=== PATIENT | female | born 1960 | race Caucasian/White ===

== ENCOUNTER 2016-12-19 12:42 | Emergency (ER) | payer OTHER ==
[~2016-12-19] VITALS: Ht 167.6 cm; Wt 114.0 kg
[~2016-12-19 12:42] MED LIST: BACL10TA PO; CYMB60CA PO; DILT31TA PO; LISI20 PO; METO25 PO; PERC5TAB12 PO; PRAV40TA PO; ZOFR4TAB3 SL
[2016-12-19 12:44] VITALS: BP 156/78; PULSE 70; RESP 12; TEMP 97.6; O2SAT 96
--- NOTE | 2016-12-19 14:23 | PD ---
HPI Chief Complaint: Fall Time Seen by Provider: 14:21 Travel History International Travel<30 days: No Contact w/Intl Traveler<30days: No Traveled to known affect area: No History of Present Illness HPI 56-year-old female presents to the emergency Department with complaint of right arm pain after falling at approximately 6 AM this morning. Patient has history of CVA and right-sided weakness. She was up using the bathroom without her leg brace and her right leg gave out and she fell landing on her right arm. She denies hitting her head or loss of consciousness. Reports right hand pain, wrist pain, upper arm pain. Her right arm is normally flaccid secondary to the CVA. Denies paresthesias or loss of sensation to the affected extremity. Denies fever, chills. Denies nausea, vomiting. Denies neck pain or back pain. Denies chest pain, shortness of breath, abdominal pain. Banquet Lead/family member at bedside denies patient has had any change in mentation, confusion, disorientation. Denies anticoagulants. History of asthma, diabetes, hypertension, CVA. Allergies to aspirin, morphine, vancomycin. No other modifying factors or associated signs and symptoms. PFSH Past Medical History Hx Anticoagulant Therapy: No Asthma: Yes Atrial Fibrillation: Yes Anxiety: Yes Depression: Yes Cancer: No Cardiovascular Problems: Yes High Cholesterol: Yes Cerebrovascular Accident: Yes Coronary Artery Disease: Yes Diabetes: Yes Diminished Hearing: No Endocrine: No Genitourinary: No Hypertension: Yes Immune Disorder: No Musculoskeletal: Yes (BACK, DISK HERNIATION; TORN MINISCUS LT KNEE) Neurologic: Yes Psychiatric: Yes Reproductive: No Respiratory: Yes (Asthma ) Migraines: Yes Ulcer: Yes ?: Not Menopausal: Yes Past Surgical History Body Medical Devices: hardware left foot Cardiac Surgery: Yes (cardiac ablation) Gynecologic Surgery: Yes (hysterectomy) Hysterectomy: Yes Neurologic Surgery: Yes Oral Surgery: Yes (tonsillectomy sinusotomy) Pacemaker: No Other Surgery: Yes (SINUS SURGERY, BACK SURGERY) Social History Alcohol Use: No Tobacco Use: No Substance Use: No Allergies-Medications (Allergen,Severity, Reaction): Coded Allergies: Vancomycin (Verified Allergy, Severe, Rash, hypertension, tachycardia, ) Aspirin (Verified Adverse Reaction, Severe, 12/19/16) Patient states she can't take because she used to have ulcers, also H/O hemmorhagic CVA. Morphine (Verified Adverse Reaction, Severe, "Becomes violent", 12/19/16) Reported Meds & Prescriptions Reported Meds & Active Scripts Active Lortab (Hydrocodone-Acetaminophen) 5-325 Mg Tab 1 Tab PO Q6H PRN Reported Pravachol (Pravastatin) 40 Mg Tab 40 Mg PO DAILY Metoprolol Tartrate 25 Mg Tab 25 Mg PO DAILY Lisinopril 20 Mg Tab 20 Mg PO DAILY Diltiazem (Diltiazem HCl) 30 Mg Tab 30 Mg PO QID Cymbalta DR (Duloxetine HCl) 60 Mg Capdr 60 Mg PO DAILY Baclofen 10 Mg Tab 10 Mg PO TID Review of Systems Except as stated in HPI: all other systems reviewed are Neg Physical Exam Narrative GENERAL: Well-nourished, well-developed elderly, female patient, in no acute distress SKIN: Warm and dry. HEAD: Atraumatic. Normocephalic. No facial or scalp abrasions or lacerations noted. EYES: Pupils equal and round at 4 mm with brisk reaction. No scleral icterus. No injection or drainage. No raccoon eyes. ENT: Mucosa pink and moist. No erythema or exudates. No uvular edema. No uvular , palatal, or tonsillar deviation. Airway patent. Nares without nasal blood, purulent drainage or septal hematoma. No rhinorrhea. EARS: Bilateral pinnae and external canals appear within normal limits. Bilateral tympanic membranes without erythema, dullness, hemotympanum or perforation. No otorrhea. No orantes signs. NECK: Trachea midline. Moving freely. Active rotation of the neck greater than 45 left and right. No midline point tenderness on palpation of the cervical spine. No obvious deformities. CHEST: No retractions or use of accessory muscles. CARDIOVASCULAR: Regular rate and rhythm. No murmur appreciated. RESPIRATORY: No accessory muscle use. Clear to auscultation. Breath sounds equal bilaterally. GASTROINTESTINAL: Abdomen soft, non-tender, nondistended. Hepatic and splenic margins not palpable. Bowel sounds are active 4 quadrants. MUSCULOSKELETAL: Right arm flaccid secondary to CVA; right arm with ecchymosis noted to bicep area, wrist and hand area; with tenderness on palpation to the bicep area, wrist, and hand; hand is minimally edematous; sensory intact; 2+ radial pulses; less than 3 second cap refill; no obvious deformities. No obvious deformities. No clubbing. No cyanosis. No edema. BACK: No midline Point tenderness on palpation of the lumbar or thoracic spine. No obvious deformities. Patient sitting up in bed at 90. NEUROLOGICAL: Awake and alert. Oriented 3. No obvious cranial nerve deficits. Motor grossly within normal limits. Normal speech. Moves all extremities. 5/5 strength to all extremities. Sensory intact. PSYCHIATRIC: Appropriate mood and affect; insight and judgment normal. Data Data Last Documented VS Vital Signs Date Time Temp Pulse Resp B/P Pulse Ox O2 Delivery O2 Flow Rate FiO2 12/19/16 12:44 97.6 70 12 156/[address] Brain W/O Iv Contrast(Rout) (12/19/16 ) Forearm (2vws) (12/19/16 14:11) Hand, Complete ([id number]) (12/19/16 14:11) Humerus (Min 2vws) (12/19/16 14:11) Ice/Cold Pack (12/19/16 14:11) Splint Or Brace Apply/Monitor (12/19/16 16:02) Sling Cradle Arm (12/19/16 ) MDM Medical Decision Making Medical Screen Exam Complete: Yes Emergency Medical Condition: Yes Medical Record Reviewed: Yes Differential Diagnosis Fall, fracture, contusion, sprain Narrative Course 56-year-old female with right arm injury after a mechanical fall earlier this morning. History of CVA and right-sided weakness. Denies hitting her head or loss of consciousness. Right upper extremity is flaccid and that is normal for the patient. Head CT ordered. Right humerus, right forearm, right hand, right wrist x-ray ordered. 1536: Right hand x-ray concludes cortical step-offs and acute fractures are appreciated at the base of the head of the first and second metacarpals and there is no evidence of dislocations. Right humerus, right forearm, right wrist x-rays are unremarkable. CT head concludes Stable noncontrast head CT. No acute finding is identified. There is stable encephalomalacia in the left frontal lobe. Call placed to hand. 1600: I spoke with Dr. Connolly and he recommended thumb spica splint and this patient to follow up in his office. Splint ordered. Arm sling ordered for support. Lortab prescribed for home. Instructed patient to follow-up with Dr. Connolly in his office and verbalized understanding and agreement. Patient is medically cleared and stable for discharge. Discussed reasons to return to the emergency department. Instructed patient to follow up with primary care provider. Patient agrees with treatment plan. The patients vital signs are stable and the patient is stable for outpatient follow-up and treatment. Patient discharged home, stable and in no acute distress. Diagnosis Primary Impression: Fall Qualified Code: W19.XXXA - Fall, initial encounter Additional Impression: Right hand fracture Qualified Code: S62.91XA - Right hand fracture, closed, initial encounter Referrals: Aashish Connolly III, MD Primary Care Physician Patient Instructions: Fall Prevention (ED), General Instructions, Hand Fracture (ED) Additional Instructions: Tylenol or ibuprofen as needed and as directed to reduce pain and inflammation Rest, ice, and compress extremity to decrease pain and inflammation Arm sling for support Point for support; do not remove splint until he follow-up with the hand surgeon , Dr. Connolly Avoid aggravating activity; increase activity as tolerated Follow-up with primary care provider Follow-up with hand surgeon, Dr. Connolly. His information is in your discharge instructions. Return to the emergency department immediately with worsening symptoms Med/Other Pt SpecificInfo: Prescription(s) given Scripts Hydrocodone-Acetaminophen (Lortab)5-325 Mg Tab1 Tab PO Q6H PRN (PAIN) #15 TAB Ref 0 Prov:Yvette Alford DO 12/19/16 Disposition: 01 DISCHARGE HOME Condition: Stable Alisia Obrien Dec 19, 2016 14:23
[2016-12-19] MEDS ORDERED: DILT30TA PO (14:32)
[2016-12-19] MEDS ORDERED: PRAV40TA PO (14:32)
[2016-12-19] MEDS ORDERED: BACL10TA PO (14:32)
[2016-12-19] MEDS ORDERED: LISI-515 PO (14:32)
[2016-12-19] MEDS ORDERED: METO25TA3 PO (14:32)
[2016-12-19] MEDS ORDERED: CYMB60CA PO (14:32)
--- NOTE | 2016-12-19 15:19 | RADRPT ---
EXAM DATE/TIME: 12/19/2016 14:48 [facility] COMPARISON: No previous studies available for comparison. INDICATIONS : Fell today. MEDICAL HISTORY : Stroke. SURGICAL HISTORY : None. ENCOUNTER: Initial ACUITY: 1 day PAIN SCORE: 8/10 LOCATION: Right hand FINDINGS: The bony structures are osteopenic. Cortical step-offs and acute fractures are appreciated the base o f the head of the first and second metacarpals. There is no evidence of dislocations. CONCLUSION: Fractured distal base of the head first and second metacarpals Carson Siddiqui MD on December 19, 2016 at 15:16 Board Certified Radiologist. This report was verified electronically.
--- NOTE | 2016-12-19 15:23 | RADRPT ---
EXAM DATE/TIME: 12/19/2016 14:51 [facility] COMPARISON: No previous studies available for comparison. INDICATIONS : Fell today MEDICAL HISTORY : Stroke. SURGICAL HISTORY : None. ENCOUNTER: Initial ACUITY: 1 day PAIN SCORE: 8/10 LOCATION: Right forearm FINDINGS: Two view examination of the right forearm demonstrates no evidence of fracture or dislocation. Bony mineralization is osteopenic. The soft tissue structures are intact. CONCLUSION: No acute bony injury Carson Siddiqui MD on December 19, 2016 at 15:20 Board Certified Radiologist. This report was verified electronically.
--- NOTE | 2016-12-19 15:29 | RADRPT ---
EXAM DATE/TIME: 12/19/2016 14:45 [facility] COMPARISON: HUMERUS RIGHT (MIN 2VWS), July 02, 2016, 22:02. INDICATIONS : Fell today.. MEDICAL HISTORY : Stroke. SURGICAL HISTORY : None. ENCOUNTER: Initial ACUITY: 1 day PAIN SCORE: 8/10 LOCATION: Right humerus FINDINGS: 2 views right humerus demonstrate no fracture or dislocation. Mineralization is within normal limits. No soft tissue abnormality or radiopaque foreign body is identified. CONCLUSION: No acute abnormality is identified. Ed Collins MD on December 19, 2016 at 15:27 Board Certified Radiologist. This report was verified electronically.
--- NOTE | 2016-12-19 15:38 | RADRPT ---
EXAM DATE/TIME: 12/19/2016 14:50 [facility] COMPARISON: CT BRAIN W/O CONTRAST, July 02, 2016, 21:51. INDICATIONS : Leg weakness causing falls. RADIATION DOSE: 41.10 CTDIvol (mGy) MEDICAL HISTORY : Cardiovascular disease. Cerebrovascular disease. Diabetes SURGICAL HISTORY : Hysterectomy. Craniotomy. ENCOUNTER: Initial ACUITY: 1 day PAIN SCALE: 5/10 LOCATION: cranial TECHNIQUE: Multiple contiguous axial images were obtained of the head. Using automated exposure control and adj ustment of the mA and/or kV according to patient size, radiation dose was kept as low as reasonably a chievable to obtain optimal diagnostic quality images. FINDINGS: CEREBRUM: There is stable low attenuation encephalomalacia primarily in the left frontal lobe. Ventricles are n ormal in size. No evidence of midline shift, mass lesion, hemorrhage or acute infarction. No extra-a xial fluid collections are seen. POSTERIOR FOSSA: The cerebellum and brainstem demonstrate no abnormality. The 4th ventricle is midline. The cerebell opontine angle is unremarkable. EXTRACRANIAL: Visualized sinuses are clear. SKULL: There has been prior left frontal craniotomy. CONCLUSION: Stable noncontrast head CT. No acute finding is identified. There is stable encephalomalacia in the l eft frontal lobe. Ed Collins MD on December 19, 2016 at 15:34 Board Certified Radiologist. This report was verified electronically.
[2016-12-19] MEDS ORDERED: HYDR-3533 PO (16:05)
[2016-12-19] MEDS ORDERED: ACETAMINOPHEN/HYDROcodone 325 MG/5 MG TAB PO ONE (17:00)
== END 2016-12-19 18:16 | disposition home or self-care (01) ==
LOC: NEPB 12:42
DX: S62.231A Other displaced fracture of base of first metacarpal bone, right hand, initial encounter for closed fracture (principal); S62.310A Displaced fracture of base of second metacarpal bone, right hand, initial encounter for closed fracture; I48.91 Unspecified atrial fibrillation; E78.00 Pure hypercholesterolemia, unspecified; I25.10 Atherosclerotic heart disease of native coronary artery without angina pectoris; I10 Essential (primary) hypertension; I25.2 Old myocardial infarction; W19.XXXA Unspecified fall, initial encounter; Y92.002 Bathroom of unspecified non-institutional (private) residence as the place of occurrence of the external cause
CPT/HCPCS: 70450; 73060; 73090; 73130; 99284; L3808

== ENCOUNTER → 2018-02-27 | Outpatient (CLI) | payer OTHER ==
[~2018-02-27] MED LIST changes: +DILT30TA PO; -DILT31TA PO; +HYDR-3533 PO; +LISI-515 PO; -LISI20 PO; -METO25 PO; +METO25TA3 PO; -PERC5TAB12 PO; -ZOFR4TAB3 SL
[2018-02-27 13:32] LABS: PROTHROMBIN TIME - PATIENT 10.4 SEC (9.8-11.6)
[2018-02-27 14:17] LABS: AUTOMATED NEUTROPHIL # 3.3 TH/MM3 (1.8-7.7); BASOPHIL % 0.2 % (0.0-2.0); EOSINOPHIL # 0.3 TH/MM3 (0-0.4); EOSINOPHIL % 3.8 % (0.0-4.0); HEMATOCRIT 40.4 % (35.0-46.0); HEMOGLOBIN 13.3 GM/DL (11.6-15.3); LYMPH % 42.9 % (9.0-44.0); MEAN CELL VOLUME 88.3 FL (80.0-100.0); MEAN CORPUSCULAR HEMOGLOBIN 29.2 PG (27.0-34.0); MEAN PLATELET VOLUME 10.2 FL (7.0-11.0); MONO % 5.7 % (0.0-8.0); MONOCYTE # 0.4 TH/MM3 (0-0.9); NEUT % 47.4 % (16.0-70.0); PLATELET COUNT 227 TH/MM3 (150-450); RED BLOOD COUNT 4.58 MIL/MM3 (4.00-5.30); WHITE BLOOD COUNT 6.9 TH/MM3 (4.0-11.0)
[2018-02-27 14:30] LABS: ALBUMIN 3.9 GM/DL (3.4-5.0); BICARBONATE 28.6 MEQ/L (21.0-32.0); BLOOD UREA NITROGEN 14 MG/DL (7-18); CALCIUM 8.9 MG/DL (8.5-10.1); CHLORIDE 106 MEQ/L (98-107); GLUCOSE,RANDOM 108 MG/DL (74-106); SODIUM (NA) 141 MEQ/L (136-145)
[2018-02-27 14:31] LABS: ALT (GPT) 77 U/L (10-53); AST (GOT) 71 U/L (15-37); CREATININE 0.83 MG/DL (0.50-1.00); GLOMERULAR FILTRATION RATE 70 ML/MIN (>89)
[2018-02-27 14:39] LABS: ALKALINE PHOSPHATASE 94 U/L (45-117); CHOLESTEROL 152 MG/DL (120-200); CHOLESTEROL/ HDL RATIO 3.01 RATIO; HDL CHOLESTEROL 50.4 MG/DL (40.0-60.0); LDL CHOLESTEROL 73 MG/DL (0-99); TOTAL BILIRUBIN ADULT 0.5 MG/DL (0.2-1.0); TOTAL PROTEIN 7.6 GM/DL (6.4-8.2); TRIGLYCERIDES 141 MG/DL (42-150)
== END ==
LOC: PLAB 11:04
PROVIDERS: ATTEND Podiatrist Foot & Ankle Surgery
DX: M24.574 Contracture, right foot (principal); M20.41 Other hammer toe(s) (acquired), right foot; M20.11 Hallux valgus (acquired), right foot; E11.9 Type 2 diabetes mellitus without complications; E78.5 Hyperlipidemia, unspecified; I11.9 Hypertensive heart disease without heart failure; R53.81 Other malaise; Z11.59 Encounter for screening for other viral diseases
CPT/HCPCS: 36415; 80053; 80061; 83036; 85025; 85610; 85730; 86703; 86803

== ENCOUNTER → 2018-03-07 | Day surgery (SDC) | payer OTHER ==
[~2018-03-07] MED LIST changes: +APREPITANT 40 MG CAP ONE; +BUPIVACAINE HCL PF 0.5% 30 ML VIAL ONE; +BUPIVACAINE HCL PF 0.75% 30 ML VIAL ONE; +LACTATED RINGER'S 1000 ML INJ 1,000 ML ONE; +MIDAZOLAM HCL 2 MG/2 ML VIAL ONE; +ONDANSETRON HCL 4 MG/2 ML VIAL IV PUSH ONE; +PROPOFOL 100 MG/10 ML INJ IV ONE; +ceFAZolin 2 GM PREMIX 100 ML IV ONE; +oxyCODONE/ACETAMINOPHEN 5 MG/325 MG TAB ONE
--- NOTE | 2018-03-13 09:54 | TN ---
cc: DiazEulaliodelicia CARPENTER DATE OF SURGERY: 03/07/2018 INDICATIONS: This patient presented to my clinic with inability to fit appropriately into her brace. She suffered a stroke many years ago and has right-sided weakness and inability to use some of the muscles in her right lower extremity. She also had a bunion deformity that was rubbing in her shoes as well as the inability to fit well into her brace. She was found to have gastrocnemius equinus as well as a prominent medial eminence to the bunion area that would stay erythematous secondary to pressure in her shoes. She came to me requesting correction of deformity of the bunions on her toes that were in a reducible flexion contracture, as well as her inability to fit well into that brace at a right angle. I discussed with her that she would need either a gastrocnemius recession with percutaneous tendo-Achilles lengthening, bunionectomy of the right foot and possible flexor tenotomies of her second, third, fourth and fifth hammertoes. She agreed to move forward with surgical correction of these deformities and consent was signed. The risks, benefits and potential complications were described in detail to the patient. PROCEDURE NOTE: She was seen in preop holding by myself, nursing staff and anesthesia where the correct patient, side, and site were all confirmed to be correct in the right lower extremity. She was taken to the surgical suite in the supine position. The right foot and lower leg were prepped and draped in a normal sterile fashion. Following this, attention was directed to the medial aspect of the gastrocnemius aponeurosis area where a small incision was made approximately 1.5 cm in length in order to gain access to the medial aspect of the gastrocnemius aponeurosis. The Arthrex endoscopic gastrocnemius recession cannula was utilized in order to further gain access to and to visualize the gastrocnemius aponeurosis. Once the cannula was placed through from medial to laterally across the aponeurosis, another small incision approximately 1 cm was made laterally to complete the portal of entry for the endoscopic gastrocnemius recession equipment. Following this, the endoscope was utilized in order to visualize the gastrocnemius aponeurosis. Following this, the appropriate tools were utilized in order to visualize and incise the gastrocnemius aponeurosis in order to achieve reduction of the contracture with dorsiflexion of the foot. The deformity and contracture was able to be reduced in its entirety without having to also do a percutaneous tendo-Achilles lengthening. Following this, the area was copiously irrigated, followed by closure with 2-0 nylon, both medially and laterally to the portals of entry. Following this, attention was then directed to the dorsal medial aspect of the right first metatarsophalangeal joint area where approximately a 6 cm incision was made to gain access to the first metatarsophalangeal joint. Taking care to avoid neurovascular structures, the medial eminence was resected, followed by a Chevron osteotomy in the first metatarsal head, followed by a lateralization of the capital fragment and fixation with Arthrex 3.0 mm screw, as well as two 2.0 mm Trim-It pin fixation in order to achieve stable fixation of this osteotomy site. Residual bone was resected from the medial aspect of the first metatarsal head area followed by irrigation and closure with both 3-0 Vicryl and 2-0 nylon suture. Following this, attention was directed to the plantar aspect of the digits 2, 3, 4, and 5. We used a #15 blade to make an incision in the plantar aspect of the proximal interphalangeal joint in order to perform a flexor tenotomy. Once the flexor tendons were released to each respective digit and the deformity was reduced, the area was copiously irrigated, followed by closure with 2-0 nylon suture. Following this, dressings consisting of Xeroform, 4 x 4s, cast padding, ABD and Fermín bandage were applied to the right lower extremity. She was placed in her Cam boot and will follow up in clinic in 1 week for a dressing change. She will be weightbearing as tolerated to the right lower extremity in the boot. SHORT OPERATIVE NOTE SURGEON: Blanca Perales DPM. ROLL WRAPPER: Staff. PREOPERATIVE DIAGNOSES: 1. Gastrocsoleus equinus with contracture, right lower extremity. 2. Bunion, right foot. 3. Hammertoes 2, 3, 4 and 5, right foot. POSTOPERATIVE DIAGNOSIS: 1. Gastrocsoleus equinus with contracture, right lower extremity. 2. Bunion, right foot. 3. Hammertoes 2, 3, 4 and 5, right foot. PROCEDURE: 1. Right gastrocnemius recession. 2. Right bunionectomy. 3. Flexor tenotomy, right second, third, fourth and fifth toes. PROPHYLAXIS: Two grams of Ancef IV preop. PATHOLOGY: None. ESTIMATED BLOOD LOSS: Minimal. HEMOSTASIS: Tourniquet to right thigh at 250 mmHg x 82 minutes. ANESTHESIA: General endotracheal anesthesia plus 30 mL of 0.5% Marcaine plain. COMPLICATIONS: None. DISPOSITION: Weightbearing as tolerated, right lower extremity in Cam boot. Followup in 1 week for a dressing change. PAULINE Gonzales/CASSY , 09:29 AM , 09:54 AM
== END | disposition home or self-care (01) ==
LOC: ESDC 06:26
PROVIDERS: ATTEND Podiatrist Foot & Ankle Surgery
DX: M21.611 Bunion of right foot (principal); Q66.0 Congenital talipes equinovarus; M20.41 Other hammer toe(s) (acquired), right foot
CPT/HCPCS: 01470; 01474; 01480; 27687; 28232; 28296; 73630; 76000; C1713; J2250; J2405; J3010; J7120; J8501